=== PATIENT | female | born 1995 | race Hispanic/Latino ===

== ENCOUNTER 2019-02-04 14:34 | Emergency (ER) | payer OTHER ==
[~2019-02-04] VITALS: Ht 180.3 cm; Wt 136.1 kg
[2019-02-04] MEDS ORDERED: FLUOXETINE HCL10 MG PO (14:49)
[2019-02-04] MEDS ORDERED: CRUTCH1 EACH (16:07)
== END 2019-02-04 16:29 | disposition home or self-care (01) ==
LOC: ED 14:34
DX: S93.402A Sprain of unspecified ligament of left ankle, initial encounter (principal); X50.9XXA Other and unspecified overexertion or strenuous movements or postures, initial encounter; Z79.899 Other long term (current) drug therapy
CPT/HCPCS: 73610; 99283-25; A9270